=== PATIENT | female | born 1990 | race Caucasian/White ===

== ENCOUNTER 2016-08-05 19:23 | Emergency (ER) | payer OTHER ==
[~2016-08-05] VITALS: Ht 162.6 cm; Wt 101.6 kg
[2016-08-05 19:38] VITALS: Ht 162.6 cm; Wt 101.6 kg
[2016-08-05] MEDS ORDERED: KETOROLAC TROMETHAMINE 30 MG/ML VIAL IV STA (20:07)
[2016-08-05] MEDS ORDERED: DXY100 PO (20:11)
[2016-08-05] MEDS ORDERED: TRAM-10 PO (20:11)
[2016-08-05] MEDS ORDERED: CFT250 PO (20:11)
[2016-08-05] MEDS ORDERED: SODIUM CHLORIDE 0.9% 1000ML 1,000 ML IV ONE (20:15)
[2016-08-05] MEDS ORDERED: OPTIRAY 320 IV PRN (20:15)
[2016-08-05 20:53] LABS: BASO % 0.7 %; BASO ABS # 0.05 K/uL (0-0.2); COMPLETE YES; EOS % 3.9 %; IG% 0.3 %; LYMPH % 28.1 %; LYMPH ABS # 2.09 K/uL (1.2-3.4); MEAN CELL VOLUME 76.6 fL (80-100); MEAN CORPUSCULAR HEMOGLOBIN 24.6 pg (25-34); MEAN CORPUSCULAR HGB CONC 32.1 g/dl (32-36); MEAN PLATELET VOLUME 9.8 fL (7.4-10.4); MONO % 7.4 %; NEUT % 59.6 %; PLATELET COUNT 347 K/uL (130-400); RED BLOOD COUNT 5.09 M/uL (4.2-5.4); WHITE BLOOD COUNT 7.43 K/uL (4.8-10.8)
[2016-08-05 21:09] LABS: BUN/CREATININE RATIO 14.8 (10-20); CALCIUM 9.6 mg/dl (8.5-10.1); CREATININE 0.93 mg/dl (0.60-1.20)
[2016-08-05 21:12] LABS: ALB/GLOB RATIO 1.1 (0.9-2)
--- NOTE | 2016-08-05 21:56 | DIAGNOSTIC IMAGING REPORT ---
ABDOMEN AND PELVIS CT WITH IV CONTRAST CT DOSE: 1273.99 mGy.cm HISTORY: Post op infx? not healing. Surg 4 days ago to cleanout TECHNIQUE: Multiaxial CT images of the abdomen and pelvis were performed following the use of intravenous contrast. COMPARISON STUDY: None. FINDINGS: Mild dependent changes seen at the lung bases. Trace right pleural effusion. The liver, gallbladder, pancreas, spleen, adrenal glands, and left kidney are unremarkable. There is a 4 mm stone within the lower pole the right kidney. No ureteral stones or hydronephrosis. The bladder is unremarkable. No retroperitoneal lymphadenopathy. Trace pneumoperitoneum. The appendix is within normal limits. The bladder and ovaries are unremarkable. Focal indentation at the uterine fundus favors an arcuate uterus. No loculated fluid collections within the abdomen or pelvis to suggest an abscess. Prior scar is again noted. Trace amount of gas and fluid within the incision site which may be due to the recent postoperative change. IMPRESSION: 1. Trace amount gas and fluid at the incision. This may be due to the recent postoperative change. 2. There is also trace pneumoperitoneum which may be related to the recent postoperative change. Clinical recommended. 3. No intra-abdominal abscess identified. 4. 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 5. Right-sided nephrolithiasis. No hydronephrosis Electronically signed by: Meek Rae M.D. 08/05/2016 9:54 PM Dictated Date/Time: 08/05/2016 9:45 PM
--- NOTE | 2016-08-05 22:23 | DIAGNOSTIC IMAGING REPORT ---
BILATERAL LOWER EXTREMITY VENOUS DOPPLER HISTORY: Calf pain b/l after surgery COMPARISON STUDY: None. FINDINGS: There is normal compressibility, flow, and augmentation within the bilateral lower extremity deep venous systems. IMPRESSION: No DVT within the right or left lower extremity. Electronically signed by: Meek Rae M.D. 08/05/2016 10:21 PM Dictated Date/Time: 08/05/2016 10:21 PM
[2016-08-05 23:35] VITALS: BP 125/74; PULSE 63; TEMP 36.5; O2SAT 98
--- NOTE | 2016-08-06 14:22 | EMERGENCY ROOM VISIT NOTE ---
History First contact with patient: 19:50 Chief Complaint: INFECTION Stated Complaint: INFECTED INCISION Nursing Triage Summary: Patient has an infected C section incision that was recently opened and cleaned out at [facility] on 08/01, currently on antibiotic. History of Present Illness The patient is a 26 year old female who presents to the Emergency Room with complaints of infected section wound. The patient states that she had a section performed by her [employer] at [facility] in late May this year, roughly 2 months ago. The patient states that she had some mild issues with pain and dehydration following the procedure, and went to that facility several more times for hydration and pain control. She then developed some lower incisional pain, and had a pocket of infection break open causing a small dehiscence of her wound. The patient states that she was started on clindamycin, and had been on that medication for several weeks. She states that she had worsening of her symptoms, and eventually the entire wound dehisced about 5 weeks after the procedure. She went to [facility] , who continued her on antibiotics, but switched her to doxycycline and Ceftin. Evidently last week she had a CT scan that showed a worsening infection and possible abscess. She had a washout surgery performed 4 days ago in [place] by a general surgeon. She has home nursing services to pack her dehisced wound. She had a follow-up appointment today with her PCP, who evidently referred her to this facility for further management of her wound. The patient continues with mild pain that worsens with movement. She does not report fever or chills , but she states that she is tired of feeling sick. She has not had purulent drainage from her incision. She is reporting some tightness in her lower legs but no shortness of breath. The patient considers herself otherwise usually healthy and does not otherwise take medication prior to this. She rates her overall discomfort and frustration a 10/10. Review of Systems More than 10 systems were reviewed and otherwise negative with the exception of history of present illness. Past Medical/Surgical History History of section 2 Family History No pertinent family history Social History Smoking Status: Never Smoker Housing Status: lives with family Current/Historical Medications Scheduled Cefuroxime Axetil (Cefuroxime Axetil), 250 MG PO BID Doxycycline Hyclate (Doxycycline Hyclate), 100 MG PO BID Scheduled PRN Tramadol (Ultram), 50 MG PO Q6 PRN for Pain Allergies Coded Allergies: Morphine (Verified Allergy, Intermediate, iv site swelling, 08/05/16) Penicillins (Verified Allergy, Unknown, rash, 08/05/16) Sulfa Antibiotics (Verified Allergy, Unknown, rash, 08/05/16) Physical Exam Vital Signs Date Time Temp Pulse Resp B/P (MAP) Pulse Ox O2 Delivery O2 Flow Rate FiO2 08/05/16 23:35 36.5 63 16 125/74 98 08/05/16 22:26 60 16 111/79 98 Room Air 08/05/16 21:09 80 16 116/80 99 Room Air 08/05/16 19:38 37.2 107 20 142/90 99 Room Air Pain Rating (0-10): 4.0 Physical Exam VITALS: Vitals are noted on the nurse's note and reviewed by myself. Vital signs stable. GENERAL: Well-developed, well-nourished, white female who is very tearful on examination. She is overall cooperative and in no acute distress. HEAD: Normocephalic atraumatic. HEART: Regular rate and rhythm without murmurs gallops or rubs. LUNGS: Clear to auscultation bilaterally without wheezes, rales or rhonchi. No retractions or accessory muscle use. ABDOMEN: Positive normal bowel sounds x 4. Soft, nontender, without masses or organomegaly. No guarding or rebound tenderness. There is a dehisced wound in the very lower abdomen consistent with a dehisced section. This measures approximately 8 or 9 cm in length and as a maximum depth of 1-2 cm. There is no obvious cellulitis surrounding the wound or gross abscess. No fluctuance or significant tenderness noted on palpation of this region. MUSCULOSKELETAL: No muscle atrophy, erythema, or edema noted. Negative Homans sign. No rash or lesions. NEURO: Patient was alert and oriented to person place and time. CN II through XII grossly intact. Medical Decision & Procedures ER Provider Diagnostic Interpretation: BILATERAL LOWER EXTREMITY VENOUS DOPPLER HISTORY: Calf pain b/l after surgery COMPARISON STUDY: None. FINDINGS: There is normal compressibility, flow, and augmentation within the bilateral lower extremity deep venous systems. IMPRESSION: No DVT within the right or left lower extremity. ABDOMEN AND PELVIS CT WITH IV CONTRAST CT DOSE: 1273.99 mGy.cm HISTORY: Post op infx? not healing. Surg 4 days ago to cleanout TECHNIQUE: Multiaxial CT images of the abdomen and pelvis were performed following the use of intravenous contrast. COMPARISON STUDY: None. FINDINGS: Mild dependent changes seen at the lung bases. Trace right pleural effusion. The liver, gallbladder, pancreas, spleen, adrenal glands, and left kidney are unremarkable. There is a 4 mm stone within the lower pole the right kidney. No ureteral stones or hydronephrosis. The bladder is unremarkable. No retroperitoneal lymphadenopathy. Trace pneumoperitoneum. The appendix is within normal limits. The bladder and ovaries are unremarkable. Focal indentation at the uterine fundus favors an arcuate uterus. No loculated fluid collections within the abdomen or pelvis to suggest an abscess. Prior scar is again noted. Trace amount of gas and fluid within the incision site which may be due to the recent postoperative change. IMPRESSION: 1. Trace amount gas and fluid at the incision. This may be due to the recent postoperative change. 2. There is also trace pneumoperitoneum which may be related to the recent postoperative change. Clinical recommended. 3. No intra-abdominal abscess identified. 4. 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 5. Right-sided nephrolithiasis. No hydronephrosis Laboratory Results 08/05/16 20:25 Red Blood Count 5.09, Mean Corpuscular Volume 76.6, Mean Corpuscular Hemoglobin 24.6, Mean Corpuscular Hemoglobin Concent 32.1, Mean Platelet Volume 9.8, Neutrophils (%) (Auto) 59.6, Lymphocytes (%) (Auto) 28.1, Monocytes (%) (Auto) 7.4, Eosinophils (%) (Auto) 3.9, Basophils (%) (Auto) 0.7, Neutrophils # (Auto) 4.43, Lymphocytes # (Auto) 2.09, Monocytes # (Auto) 0.55, Eosinophils # (Auto) 0.29, Basophils # (Auto) 0.05 08/05/16 20:25 Test 08/05/16 20:25 08/05/16 20:34 White Blood Count 7.43 K/uL (4.8-10.8) Red Blood Count 5.09 M/uL (4.2-5.4) Hemoglobin 12.5 g/dL (12.0-16.0) Hematocrit 39.0 % (37-47) Mean Corpuscular Volume 76.6 fL (80-100) Mean Corpuscular Hemoglobin 24.6 pg (25-34) Mean Corpuscular Hemoglobin Concent 32.1 g/dl (32-36) Platelet Count 347 K/uL (130-400) Mean Platelet Volume 9.8 fL (7.4-10.4) Neutrophils (%) (Auto) 59.6 % Lymphocytes (%) (Auto) 28.1 % Monocytes (%) (Auto) 7.4 % Eosinophils (%) (Auto) 3.9 % Basophils (%) (Auto) 0.7 % Neutrophils # (Auto) 4.43 K/uL (1.4-6.5) Lymphocytes # (Auto) 2.09 K/uL (1.2-3.4) Monocytes # (Auto) 0.55 K/uL (0.11-0.59) Eosinophils # (Auto) 0.29 K/uL (0-0.5) Basophils # (Auto) 0.05 K/uL (0-0.2) RDW Standard Deviation 42.0 fL (36.4-46.3) RDW Coefficient of Variation 14.8 % (11.5-14.5) Immature Granulocyte % (Auto) 0.3 % Immature Granulocyte # (Auto) 0.02 K/uL (0.00-0.02) Anion Gap 7.0 mmol/L (3-11) Est Creatinine Clear Calc Drug Dose 104.5 ml/min Estimated GFR () 96.9 Estimated GFR (Non- 83.6 BUN/Creatinine Ratio 14.8 (10-20) Calcium Level 9.6 mg/dl (8.5-10.1) Total Bilirubin 0.4 mg/dl (0.2-1) Aspartate Amino Transf (AST/SGOT) 30 U/L (15-37) Alanine Aminotransferase (ALT/SGPT) 54 U/L (12-78) Alkaline Phosphatase 94 U/L (45-117) Total Protein 8.0 gm/dl (6.4-8.2) Albumin 4.1 gm/dl (3.4-5.0) Globulin 3.9 gm/dl (2.5-4.0) Albumin/Globulin Ratio 1.1 (0.9-2) Bedside Lactic Acid Venous 1.04 mmol/L (0.90-1.70) Medications Administered Medications (Trade) Dose Ordered Sig/Natalya Route Start Time Stop Time Status Last Admin Dose Admin Sodium Chloride 1,000 ml @ 999 mls/hr Q1H1M ONCE IV 08/05/16 20:15 08/05/16 21:15 DC 08/05/16 20:45 999 MLS/HR Ketorolac Tromethamine (Toradol Inj) 30 mg NOW STAT IV 08/05/16 20:07 08/05/16 20:10 DC 08/05/16 21:10 30 MG ED Course Physical exam and history were performed. Nursing notes and EMR were reviewed. Patient appears to have had difficulty with surgical complications following a section about 2 months ago. The patient has seen multiple providers for this complaint over several different hospitals. Her PCP was reportedly going to fax information to this facility regarding her past records, however this did not occur during the patient's stay. Out of concern for possible worsening infection I did elect to draw labs and perform a CT scan of her abdomen and pelvis. Out of concern for possible DVT a venous ultrasound was performed of the lower extremities. The patient was hydrated and medicated as above. The patient's blood work does not show a significantly elevated white blood cell count, gross anemia, bandemia, or significant electrolyte imbalance. The CT scan of the abdomen and pelvis shows signs of recent surgery, which was expected, but does not show gross infection. Her lactic acid is negative and blood cultures are pending. Ultrasound of the legs was negative for DVT. The patient's surgical wound was packed and dressed by nursing. I had a lengthy discussion with the patient and her regarding options of care. The patient does not appear to have an imminently life-threatening process at this time. Her blood work and imaging studies are without significant acute findings, and she certainly does not appear to need hospitalization. The patient has antibiotics in doxycycline and Ceftin that she is currently taking and tolerating well. Home nursing has been set up previously. This point I am unsure what additional services are required at this point. The patient has been to several hospitals and seen multiple providers for this ongoing complaint. She will do best if she continues to follow with her surgeon and her primary care physician. She is to continue her antibiotics, and continue with home nursing. I feel it is likely that her wound will heal through secondary intention given time, and I explained this process to the patient. The patient was certainly invited back to the emergency department with any new, worsening, or concerning symptoms. She will be discharged home under the care of her and rated her discomfort a 4/ 10 at the time of departure. The chart was completed utilizing [employer] Speech Voice Recognition Software. Grammatical errors, random word insertions, pronoun errors, and incomplete sentences are an occasional consequence of this system due to software limitations, ambient noise, and hardware issues. Any formal questions or concerns about the content, text, or information contained within the body of this dictation should be directly addressed to the provider for clarification. . Medical Decision Differential diagnosis: Etiologies such as post op infection, wound dehiscence, anxiety, appendicitis, diverticulitis, PUD, biliary pathology, UTI, pancreatitis, obstruction, mesenteric ischemia, aortic pathology, infections, inflammatory bowel disease, renal colic, as well as others were entertained. Impression Primary Impression: Post-operative complication Additional Impression: Wound dehiscence, Departure Information Dispostion Home / Self-Care Condition GOOD Forms HOME CARE DOCUMENTATION FORM, IMPORTANT VISIT INFORMATION Patient Instructions My [facility] Additional Instructions You were seen and evaluated today on an emergency basis only. This is not a substitute for, or an effort to provide, complete comprehensive medical care. It is not possible to recognize and treat all injuries or illnesses in a single emergency department visit. For this reason it is recommended that you followup with your primary care physician this week for ongoing care and evaluation. Continue your antibiotics as prescribed You are welcome to return to the emergency department anytime with new, worsening, or concerning symptoms. Problem Qualifiers
== END 2016-08-05 23:35 | disposition home or self-care (01) ==
LOC: C.EDB 19:25 → C.EDC 23:35
DX: O9A.23 Injury, poisoning and certain other consequences of external causes complicating the puerperium (principal); T81.4XXA Infection following a procedure, initial encounter; O90.0 Disruption of cesarean delivery wound